=== PATIENT | female | born 1940 | race Caucasian/White ===

== ENCOUNTER 2019-02-13 10:35 | Inpatient (IN) | payer MEDICARE ==
[~2019-02-13] VITALS: Ht 162.6 cm; Wt 83.9 kg
--- OUTSIDE RECORDS SUMMARY | 2019-02-13 10:37 | XMS REPORT | Clinical Summary ---
Author Author [facility] Address Unknown Phone Unavailable Care Team Providers Care Editor Farm Journal Name Role Phone Jamila Potts MD PCP Allergies Comments Active Allergy Reactions Severity Noted Date Converted from [facility]; Moxifloxacin 05/24/2016 Converted from [facility]; Ceftriaxone 05/24/2016 Converted from [facility]; Fluconazole 05/24/2016 Rash Iodine And Iodide 05/24/2016 Containing Products Penicillins Hives 05/24/2016 Converted from [facility]; Sulfa (Sulfonamide 05/24/2016 Antibiotics) Medications End Date Status Medication Sig Dispensed Refills Start Date Active acetaminophen (TYLENOL) Take 650 mg 0 325 MG tablet by mouth every 6 (six) hours as needed for mild pain. Active diphenhydrAMINE Take 25 mg by 0 (BENADRYL) 25 mg tablet mouth every 6 (six) hours. Active famotidine (PEPCID) 20 MG Take 20 mg by 0 tablet mouth nightly. Active loratadine (CLARITIN) 10 Take 10 mg by 0 mg tablet mouth daily. Active metFORMIN (GLUCOPHAGE) Take 500 mg 0 500 MG tablet by mouth daily. Active insulin GLARGINE (LANTUS) Inject 50 0 100 unit/mL injection Units under the skin daily. Active aspirin (ECOTRIN) 81 MG Take 81 mg by 0 enteric coated tablet mouth nightly. Active VITAMIN B COMPLEX (B Take 1 tablet 0 COMPLEX ORAL) by mouth daily. Active ASCORBATE CALCIUM Take 1 tablet 0 (VITAMIN C ORAL) by mouth daily. Active CHOLECALCIFEROL, VITAMIN Take 1 tablet 0 D3, (VITAMIN D3 ORAL) by mouth daily. Active FOLIC ACID/MV,FE,MIN Take 1 tablet 0 (CENTRUM ORAL) by mouth daily. Active ONETOUCH ULTRA TEST strip U QID UTD 1 test strips 7 Active ondansetron (ZOFRAN) 4 MG Take 1 tablet 20 tablet 0 tablet (4 mg total) 9 by mouth every 8 (eight) hours as needed for nausea or vomiting. 05/20/2018 Discontinued insulin lispro (HumaLOG) Inject 10-13 0 100 unit/mL injection Units under the skin 3 (three) times a day before meals. Per sliding scale Active Problems Problem Noted Date Bilateral carpal tunnel syndrome 05/20/2018 Ganglion of left wrist 05/20/2018 Arthritis of right hand 05/20/2018 TIA (transient ischemic attack) 05/24/2016 Confusion 05/24/2016 Polyp of colon 09/28/2015 Overview: Overview: 09/2015 tubular adenoma x 2 But 16 cm above anal verge 2 tubulovillous adenomas not completely removed with dysplasia one is 24 and [address] Ubaldo Torres Hay fever 08/20/2011 Overview: Overview: Converted from EC Benign essential hypertension 08/20/2011 Overview: Overview: Converted from ECW Type 2 diabetes mellitus 08/20/2011 Overview: Overview: Converted from ECW Pure hypercholesterolemia 11/09/2010 Overview: Overview: Converted from ECW Chronic migraine without aura 04/15/2010 Overview: Overview: Converted from ECW Encounters Care Team Description Date Type Specialty Maia Spence RN 02/12/2019 Telephone Access Maia Spence RN 02/12/2019 Nurse Triage Access Jamila Potts MD 02/12/2019 Telephone Internal Medicine Alex Noriega MD Bilateral carpal tunnel syndrome (Primary Dx); Ganglion of left wrist; Arthritis of right hand 05/20/2018 Office Visit Orthopedic Surgery Jamila Potts MD 04/02/2018 Telephone Internal Medicine after 02/12/2018 Family History Medical History Relation Name Comments Colon cancer Mother Relation Name Status Comments Mother Social History Date Tobacco Use Types Packs/Day Years Used Never Smoker Alcohol Use Drinks/Week oz/Week Comments No Sex Assigned at Date Recorded Not on file Industry Job Start Date Occupation Not on file Not on file Not on file Travel End Travel History Travel Start No recent travel history available. Last Filed Vital Signs Not on file Plan of Treatment Health Maintenance Due Date Last Done Comments DIABETIC RETINAL EYE EXAM 1940 DIABETIC FOOT EXAM 1952 URINE MICROALBUMIN 1952 COLONOSCOPY SCREENING 1992 SHINGLES VACCINES (#1) 1992 65+ PNEUMOCOCCAL VACCINE 2007 (1 of 2 - PCV13) INFLUENZA VACCINE 03/18/2019 Procedures Comments Procedure Name Priority Date/Time Associated Diagnosis XR HANDS 3 VW BILATERAL Routine 05/20/2018 Bilateral carpal tunnel 1:55 PM CDT syndrome after 02/12/2018 Results * XR Hands 3 Vw Bilateral (05/20/2018 1:55 PM CDT) Specimen Narrative Performed At [facility], lateral, oblique x-rays are done of the left hand and wrist.These x-rays demonstrate 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 Performing Organization Address City/State/Zipcode Phone Number [facility] [address] [place] [address] after 02/12/2018 Insurance Type Payer Benefit Subscriber ID Effective Phone Address Plan / Dates Group Medicare MEDICARE MEDICARE xxxxxxxxxx 2007-P SER[place], PART A AND resent [place] B Commercial AAR AAR xxxxxxxxxxx 2007-P SUPPLEMENT resent Advance Directives Patient has advance care planning documents on file. For more information, deya holloway contact: Sergio Mayfield [address] [place] [address]
[2019-02-13] MEDS ORDERED: SODIUM CHLORIDE 0.9% 1000ML 1,000 ML IV STA (11:18)
[2019-02-13] MEDS ORDERED: FAMOTIDINE 20 MG/2 ML VIAL IV STA (11:41)
[2019-02-13] MEDS ORDERED: SODIUM CHLORIDE 0.9% 1000ML 1,000 ML ONE (11:50)
--- NOTE | 2019-02-13 12:38 | Diagnostic Imaging Report ---
EXAMINATION: CXR 2 VIEW - HOPD INDICATION: Abdominal pain, vomiting. COMPARISON: None FINDINGS: TUBES and LINES: None. LUNGS: Lungs are well inflated. There is no evidence of pneumonia or pulmonary edema. PLEURA: No pleural effusion or pneumothorax. HEART AND MEDIASTINUM: The cardiomediastinal silhouette is unremarkable. BONES AND SOFT TISSUES: No acute osseous abnormality. UPPER ABDOMEN: No free air under the diaphragm. IMPRESSION: No acute radiographic abnormality. Signed by: Dr. Ibis Ghosh MD on 02/13/2019 12:35 PM
--- NOTE | 2019-02-13 12:56 | Diagnostic Imaging Report ---
EXAM: CT Abdomen and Pelvis without contrast INDICATION: Abdominal Pain, vomiting. COMPARISON: None. TECHNIQUE: Abdomen and pelvis were scanned utilizing a multidetector helical scanner from the lung base to the pubic symphysis without administration of IV contrast. Lack of IV contrast limits evaluation of visceral and vascular structures. Oral Gastrografin contrast was administered. Coronal and sagittal reformations were obtained. COMPLICATIONS: None RADIATION DOSE: Total DLP: 762.9 mGy*cm CTDIvol has been reviewed. It is below the limits set by the Radiation Protocol Committee (RPC). FINDINGS: LINES and TUBES: None. LOWER THORAX: Coronary atherosclerosis. HEPATOBILIARY: No evidence of focal lesion. No biliary ductal dilation. GALLBLADDER: Cholelithiasis without CT evidence of cholecystitis. SPLEEN: No splenomegaly. Calcified splenic granulomas. PANCREAS: No evidence of focal masses or ductal dilatation. There is peripancreatic stranding and trace amount of free fluid, for example as seen on series 2, image 32. However, there is no significant enlargement of the pancreas on this noncontrast study. ADRENALS: No adrenal nodules KIDNEYS/URETERS: No evidence of hydronephrosis, solid mass, or stone. GI TRACT: There is sigmoid colonic diverticulosis without CT evidence of diverticulitis. No evidence of wall thickening or distension. Appendix is normal. PELVIC ORGANS/BLADDER: Unremarkable. LYMPH NODES: No lymphadenopathy. VESSELS: There are scattered atherosclerotic calcifications in the aorta and branch vessels. PERITONEUM / RETROPERITONEUM: No free air. Trace perihepatic and pelvic ascites. BONES AND SOFT TISSUES: Unremarkable. CONCLUSION: Peripancreatic stranding without significant pancreatic enlargement. Findings may represent early acute pancreatitis. No evidence of drainable collection. Suggest correlation with laboratory and clinical findings. Signed by: Dr. Ibis Ghosh MD on 02/13/2019 12:53 PM
--- OUTSIDE RECORDS SUMMARY | 2019-02-13 13:11 | XMS REPORT | Clinical Summary ---
Author Author [facility] Address Unknown Phone Unavailable Care Team Providers Care Policy Change Clerks Supervisor Name Role Phone Jamila Potts MD PCP [...] Performing Organization Address City/State/Zipcode Phone Number [facility] [address] [place] [address] after 02/12/2018 Insurance Type Payer Benefit Subscriber ID Effective Phone Address Plan / Dates Group Medicare MEDICARE MEDICARE xxxxxxxxxx 2007-P [place], PART A AND resent [place] B Commercial AAR AAR xxxxxxxxxxx 2007-P SUPPLEMENT resent Advance Directives Patient has advance care planning documents on file. For more information, deya holloway contact: Sergio Mayfield [address] [place] [address]
--- OUTSIDE RECORDS SUMMARY | 2019-02-13 13:11 | XMS REPORT ---
Author Author [facility] Address Unknown Phone Unavailable Care Team Providers Care Calliope Player Name Role Phone Natalie RAMACHANDRAN Unavailable Unavailable Problems This patient has no known problems. Allergies, Adverse Reactions, Alerts This patient has no known allergies or adverse reactions. Medications This patient has no known medications. Results Test Description Test Time Test Comments Text Results Atomic Results Result Comments CT ABD/PEL WO CONTRAST-HOPD 2019-02-13 12:43:[address] [address] Patient Name: ADORE LEDESMA MR #: [id number] : 1940 Age/Sex: 78/F Req #: [id number] Adm Physician: Ordered by: MATTHIAS RAMACHANDRAN MD Report #: [id number] Location: [facility] Room/Bed: Procedure: [id number] HOPD/CT ABD/PEL WO CONTRAST-HOPD Exam Date: 02/13/19 Exam Time: 1244 REPORT STATUS: Signed EXAM: CT Abdomen and Pelvis without contrast INDICATION: Abdominal Pain, vomiting. COMPARISON: None. TECHNIQUE: Abdomen and pelvis were scanned utilizing a multidetector helical scanner from the lung base to the pubic symphysis without administration of IV contrast. Lack of IV contrast limits evaluation of visceral and vascular structures. Oral Gastrografin contrast was administered. Coronal and sagittal reformations were obtained. COMPLICATIONS: None RADIATION DOSE: Total DLP: 762.9 mGy*cm CTDIvol has been reviewed. It is below the limits set by the Radiation Protocol Committee (RPC). FINDINGS: LINES and TUBES: None. LOWER THORAX: Coronary atherosclerosis. HEPATOBILIARY: No evidence of focal lesion. No biliary ductal dilation. GALLBLADDER: Cholelithiasis without CT evidence of cholecystitis. SPLEEN: No splenomegaly. Calcified splenic granulomas. PANCREAS: No evidence of focal masses or ductal dilatation. There is peripancreatic stranding and trace amount of free fluid, for example as seen on series 2, image 32. However, there is no significant enlargement of the pancreas on this noncontrast study. ADRENALS: No adrenal nodules KIDNEYS/URETERS: No evidence of hydronephrosis, solid mass, or stone. GI TRACT: There is sigmoid colonic diverticulosis without CT evidence of diverticulitis. No evidence of wall thickening or distension. Appendix is normal. PELVIC ORGANS/BLADDER: Unremarkable. LYMPH NODES: No lymphadenopathy. VESSELS: There are scattered atherosclerotic calcifications in the aorta and branch vessels. PERITONEUM / RETROPERITONEUM: No free air. Trace perihepatic and pelvic ascites. BONES AND SOFT TISSUES: Unremarkable. CONCLUSION: Peripancreatic stranding without significant pancreatic enlargement. Findings may represent early acute pancreatitis. No evidence of drainable collection. Suggest correlation with laboratory and clinical findings. Signed by: Dr. Dianne Frederick MD on 02/13/2019 12:53 PM Dictated By: DIANNE FREDERICK MD [id number] Transcribed By: BRENNA on 02/13/19 1253 COPY TO: MATTHIAS RAMACHANDRAN MD CXR 2 VIEW - [facility] 2019-02-13 12:31:00 [place] [address] Patient Name: ADORE LEDESMA MR #: [id number] : 1940 Age/Sex: 78/F Req #: [id number] Adm Physician: Ordered by: MATTHIAS RAMACHANDRAN MD Report #: [id number] Location: [facility] Room/Bed: Procedure: [id number] HOPD/CXR 2 VIEW - HOPD Exam Date: 02/13/19 Exam Time: 1231 REPORT STATUS: Signed EXAMINATION: CXR 2 VIEW - HOPD INDICATION: Abdominal pain, vomiting. COMPARISON: None FINDINGS: TUBES and LINES: None. LUNGS: Lungs are well inflated. There is no evidence of pneumonia or pulmonary edema. PLEURA: No pleural effusion or pneumothorax. HEART AND MEDIASTINUM: The cardiomediastinal silhouette is unremarkable. BONES AND SOFT TISSUES: No acute osseous abnormality. UPPER ABDOMEN: No free air under the diaphragm. IMPRESSION: No acute radiographic abnormality. Signed by: Dr. Dianne Frederick MD on 02/13/2019 12:35 PM Dictated By: DIANNE FREDERICK MD 1235 Transcribed By: BRENNA on 02/13/19 1235 COPY TO: MATTHIAS RAMACHANDRAN MD
[2019-02-13] MEDS ORDERED: DEXTROSE 50% SYRINGE 50 ML IV PRN (14:15)
--- NOTE | 2019-02-13 14:20 | NUR ---
received pt via stretcher EMS from free standing ER. patient AAOx4, resp even and unlabored. oriented to room and use of call light. call light placed within reach.
[2019-02-13 15:09] VITALS: BP 147/65
[2019-02-13 15:12] VITALS: BP 147/65
[2019-02-13] MEDS ORDERED: METFORMIN HCL500 M1 PO (15:39)
[2019-02-13] MEDS: SODIUM CHLORIDE 0.9% 1000ML 1,000 ML IV SCH ×2 (15:42→20:18)
[2019-02-13 16:00] VITALS: BP 147/65
--- NOTE | 2019-02-13 16:21 | NUR ---
SPOKE WITH DR MADHURI HAHN SON'S ([facility]) AND RECEIVED ORDER FOR HIDA SCAN. CALLING PRIMARY NURSE TO UPDATE.
[2019-02-13] MEDS: INSULIN REGULAR, HUMAN 100 UNIT/1 ML 3ML VIAL SQ SCH ×2 (16:30→20:18)
[2019-02-13] MEDS ORDERED: INSULIN LISPRO 100 UNIT/1 ML 3ML VIAL SQ SCH (16:30)
[2019-02-13] MEDS ORDERED: MORPHINE SULFATE 2 MG/ML SYR 1ML IV PRN (16:45)
[2019-02-13] MEDS ORDERED: MORPHINE SULFATE INJ 4 MG/ML INJ 1ML IV PRN (17:00)
[2019-02-13] MEDS: METRONIDAZOLE 500MG/NS 100ML 100 ML IV SCH (17:07)
[2019-02-13] MEDS: LEVOFLOXACIN 500MG/D5W 100ML 100 ML IV SCH (17:07)
[2019-02-13] MEDS ORDERED: CEFTRIAXONE SOD 1 GM/NS 50 ML 50 ML IV STA (17:22)
[2019-02-13] MEDS ORDERED: CEFEPIME 1GM/NS 0.9% 50 ML 50 ML IV SCH (17:45)
[2019-02-13 19:24] VITALS: BP 147/65
[2019-02-13] MEDS: ACETAMINOPHEN 325 MG TAB PO PRN (23:59)
[2019-02-14] VITALS (8 sets, daily range): BP systolic 124–150; BP diastolic 57–67
[2019-02-14] MEDS: METRONIDAZOLE 500MG/NS 100ML 100 ML IV SCH ×3 (01:05→17:29)
--- NOTE | 2019-02-14 01:53 | Diagnostic Imaging Report ---
Exam:Hepatobiliary imaging History:Pain Hepatobiliary Scan with Gallbladder Ejection Fraction Clinical information: 78 F with acute pancreatitis Technique: Following intravenous administration of 6.8 millicuries of Tc-99m mebrofenin, dynamic images of the abdomen in the anterior projection were obtained through 35 minutes. Sincalide (CCK analog) 1.8 micrograms was administered intravenously over 30 minutes with additional imaging for determination of gallbladder ejection fraction. Discussion: Perfusion of the liver is normal. Extraction of tracer by the liver parenchyma is normal. Tracer appears promptly within the biliary tract. The gallbladder begins to fill by 16 minutes post injection of tracer and fills adequately. Tracer is seen in the small bowel by 24 minutes. The gallbladder ejection fraction with sincalide is 26% (normal greater than 40%). Impression: 1. Filling of the gallbladder excludes acute cystic duct obstruction/acute cholecystitis. 2. The decreased gallbladder ejection fraction of 26% supports the clinical diagnosis of chronic cholecystitis/gallbladder dyskinesia. 3. Preliminary report was provided by Wesley Hall MD. See prelim report below. PRELIMINARY REPORT Comparison: None available Findings:See impression Impression: Filling of the gallbladder. No acute cholecystitis. Signed by: Dr. Sahara Cavazos M.D. on 02/14/2019 1:45 PM
[2019-02-14 05:01] LABS: BASOPHILS % 0.4 % (0.0-1.0); EOSINOPHILS % 0.1 % (0.0-6.0); HEMATOCRIT 33.3 % (34.2-44.1); HEMOGLOBIN 11.4 g/dL (12.0-16.0); LYMPHOCYTES # (AUTO) 1.3 (1.0-3.2); LYMPHOCYTES % 12.1 % (18.0-39.1); MEAN CORPUSCULAR HEMOGLOBIN 31.8 pg (28-32); MEAN CORPUSCULAR HGB CONC 34.2 g/dL (31-35); MEAN CORPUSCULAR VOLUME 92.8 fL (81-99); MONOCYTES # (AUTO) 0.8 (0.2-0.8); MONOCYTES % 7.6 % (4.4-11.3); NEUTROPHILS # (AUTO) 8.2 (2.1-6.9); NEUTROPHILS % 78.9 % (38.7-80.0); PLATELET COUNT 176 x10e3/uL (140-360); RED BLOOD COUNT 3.59 x10e6/uL (3.6-5.1)
[2019-02-14 05:21] LABS: ALANINE AMINOTRANSFERASE 90 IU/L (0-55); ALBUMIN/GLOBULIN RATIO 1.1 (0.8-2.0); ALKALINE PHOSPHATASE 55 IU/L (40-150); ANION GAP 11.1 mmol/L (8-16); BLOOD UREA NITROGEN 12 mg/dL (7-26); BUN/CREATININE RATIO 14 (6-25); CALCIUM 8.6 mg/dL (8.4-10.2); CARBON DIOXIDE 26 mmol/L (22-29); CHLORIDE 105 mmol/L (98-107); CREATININE, SERUM 0.85 mg/dL (0.57-1.11); EST GLOMERULAR FILTRATION RATE > 60 ML/MIN (60-); GLUCOSE 171 mg/dL (74-118); POTASSIUM 4.1 mmol/L (3.5-5.1); SODIUM 138 mmol/L (136-145)
[2019-02-14] MEDS: INSULIN REGULAR, HUMAN 100 UNIT/1 ML 3ML VIAL SQ SCH ×4 (07:30→19:30)
[2019-02-14] MEDS: SODIUM CHLORIDE 0.9% 1000ML 1,000 ML IV SCH ×2 (07:56→21:41)
[2019-02-14 08:37] LABS: CHOL/HDL RATIO 4.2 (3.0-3.6)
[2019-02-14] MEDS: ACETAMINOPHEN 325 MG TAB PO PRN ×3 (09:30→22:03)
--- NOTE | 2019-02-14 10:59 | NUR ---
Met with pt nurse and discussed pt status and plans. Pt is admitted w/ acute pancreatitis, and does meet inpatient status. She is in observation. She is anxious and wants to go home to her who has dementia and recent orthopedic surgery. MRCP is now in progress, and she may possibly discharge pending results.
--- NOTE | 2019-02-14 11:07 | History and Physical ---
CHIEF COMPLAINT: This 78-year-old female comes in with abdominal pain. HISTORY OF PRESENTING ILLNESS: Ms. Amaya Mclean, a 78-year-old female comes in with 2 days of diffuse abdominal pain, constantly more to the epigastric area. The patient came into the emergency room, was found to have an elevated lipase, was admitted for acute pancreatitis. PAST MEDICAL HISTORY: History of diabetes. PAST SURGICAL HISTORY: None. SOCIAL HISTORY: No EtOH. No IV drug abuse. No history of smoking either. FAMILY HISTORY: The patient lives with her of 54 years of marriage. 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 PAST SURGICAL HISTORY: Noncontributory. REVIEW OF SYSTEMS: Negative for chest pain. Positive for nausea and vomiting. No diarrhea. No constipation. No rectal bleeding. No hematochezia. No hematemesis. No icterus. No pallor. No diplopia. No blurry vision. No headaches. ALLERGIES: THE PATIENT IS ALLERGIC TO: 1. PENICILLIN. 2. SULFA. 3. CEFTRIAXONE. 4. IODINE. 5. ZOFRAN. PHYSICAL EXAMINATION: GENERAL: The patient is alert and oriented x3. Very apprehensive, anxious appearing. VITAL SIGNS: Temperature is 98.7, T-max of 99.5, pulse of 101, blood pressure is 150/67, and pulse oximetry of 100%. HEENT: Normocephalic and atraumatic. No icterus present. CVS: S1, S2 normal. Regular rate and rhythm. ABDOMEN: Tender in the epigastric area. No rebound or guarding. EXTREMITIES: No clubbing, no cyanosis, no edema. LABORATORY DATA: White count is 10.43, hemoglobin 11.4, and hematocrit of 33.3. Chemistry shows sodium of 138, potassium of 4.1, BUN of 14, and creatinine of 0.85. Glucose is 171. AST and ALT slightly elevated. Alkaline phos was normal. Lipase trending down from 650 to 95. IMAGING STUDIES: CT shows peripancreatic stranding without significant pancreatic enlargement, no evidence of drainable collection. The patient's gallbladder cholelithiasis without CT evidence of cholecystitis. HIDA scan was done, which showed EF of 25% preliminary. Chest x-ray was normal. ASSESSMENT AND PLAN: Acute pancreatitis, etiology is unknown. We will go ahead and check lipid levels on the patient. Continue monitoring her lipase. Fluids have been reinstituted. The patient is on Flagyl, Cipro, and Levaquin prophylactically. The patient is scheduled for an MRCP today. Further recommendation per clinical course. Dr. Garcia is on the case. For diabetes, we will go ahead and start on insulin sliding scale. MD ELISHA Gonzáles/MODL /[id number]
--- NOTE | 2019-02-14 12:28 | NUR ---
per in radiology, preliminary MRCP results show no acute findings. MD states final results will be posted in the morning.
[2019-02-14] MEDS: LEVOFLOXACIN 500MG/D5W 100ML 100 ML IV SCH (17:02)
--- NOTE | 2019-02-14 18:44 | History and Physical ---
This is a 78-year-old female, who comes in with abdominal pain, was found to have pancreatitis, admitted for the same. HISTORY OF PRESENTING ILLNESS: Ms. Amaya Mclean is a 78-year-old female, the patient came in with abdominal pain, worse for the last 2 days of duration, diffuse, more epigastric in nature and came to the emergency room, was found to have elevated lipase, admitted for pancreatitis. REVIEW OF SYSTEMS: Negative for chest pain. No shortness of breath. Positive for nausea and vomiting. No chills. No fever. Denies any diarrhea or constipation. PAST SURGICAL HISTORY: Noncontributory. SOCIAL HISTORY: No EtOH, no tobacco. PAST MEDICAL HISTORY: Positive for diabetes. DICTATION ENDS HERE MD ELISHA Gonzáles/MODL /[id number]
--- NOTE | 2019-02-14 19:16 | NUR ---
Bedside report walking rounds complete. Pt resting in bed and in no apparent distress. All safety measures ensured, bed alarm on, and pt call parra near.
--- NOTE | 2019-02-14 21:05 | Diagnostic Imaging Report ---
EXAM: Magnetic Resonance Cholangiopancreatography (M.R.C.P.) INDICATION: ^RULE OUT COMMON BILE DUCT STONE/CHOLEDOCHOLITHAISIS COMPARISON: HIDA scan 02/13/2019. CT abdomen and pelvis 02/13/2019. TECHNIQUE: Multiplanar, multisequence MRCP was performed, with sequences including coronal turbo spin-echo T1-weighted scans, [facility] MRCP scans, coronal spin, coronal MPR 2, SMRCP 3D HR, [facility] MRCP ANTHONY. Thin and thick slab MRCP sequences with subsequent reconstruction images into rotational MIP reconstructions by the technologist and supervising reviewed by the radiologist at the scanner workstation. IV Contrast: None Oral Contrast: None Medications: None COMPLICATIONS: None FINDINGS: LOWER THORAX: Unremarkable. HEPATOBILIARY: No focal hepatic lesions. No biliary ductal dilation. Common bile duct measures 0.5 cm with no filling defects. Gradual tapering. No bronchial cutoff. GALLBLADDER: No radio-opaque stones or sludge. No wall thickening. Gallbladder measures 7.6 x 3.6 cm. SPLEEN: No splenomegaly. PANCREAS: No focal masses or ductal dilatation. Pancreas is edematous with peripancreatic fluid. No drainable fluid collections. ADRENALS: No adrenal nodules KIDNEYS/URETERS: No hydronephrosis. No cystic or solid mass lesions. No stones. GI TRACT: No abnormal distention, wall thickening, or evidence of bowel obstruction. LYMPH NODES: No lymphadenopathy. VESSELS: Unremarkable. PERITONEUM / RETROPERITONEUM: Nondrainable peripancreatic fluid. There is mild mesenteric edema related to the peripancreatic fluid. Trace free fluid around the liver and bilateral paracolic gutters. BONES: Unremarkable. SOFT TISSUES: Unremarkable. IMPRESSION: 1. Preliminary report by Dr. Melvin Hall MD. No new emergent finding. See the final report by abdominal radiologist. 2. Acute interstitial pancreatitis. 3. Mild peripancreatic fluid. Nondrainable. 4. Normal common bile duct. No intraductal filling defect or obstructing lesion. Signed by: Dr. Jesus Malhotra M.D. on 02/15/2019 8:48 AM
[2019-02-15] VITALS (8 sets, daily range): BP systolic 107–166; BP diastolic 60–84
[2019-02-15] MEDS: METRONIDAZOLE 500MG/NS 100ML 100 ML IV SCH ×3 (01:29→18:50)
[2019-02-15] MEDS: ACETAMINOPHEN 325 MG TAB PO PRN ×4 (04:01→22:50)
[2019-02-15] MEDS: SODIUM CHLORIDE 0.9% 1000ML 1,000 ML IV SCH ×3 (05:45→22:49)
[2019-02-15 05:51] LABS: ALANINE AMINOTRANSFERASE 56 IU/L (0-55); ALBUMIN 2.6 g/dL (3.5-5.0); ALBUMIN/GLOBULIN RATIO 0.9 (0.8-2.0); ALKALINE PHOSPHATASE 50 IU/L (40-150); ANION GAP 12.6 mmol/L (8-16); BLOOD UREA NITROGEN 11 mg/dL (7-26); BUN/CREATININE RATIO 16 (6-25); CALCIUM 8.3 mg/dL (8.4-10.2); CARBON DIOXIDE 21 mmol/L (22-29); CHLORIDE 105 mmol/L (98-107); EST GLOMERULAR FILTRATION RATE > 60 ML/MIN (60-); GLUCOSE 175 mg/dL (74-118); POTASSIUM 3.6 mmol/L (3.5-5.1); SODIUM 135 mmol/L (136-145)
[2019-02-15 06:30] LABS: FOLATE 13.2 ng/mL (7.0-15.4)
[2019-02-15 07:06] LABS: FERRITIN 180.37 ng/mL (4.63-204.00)
--- NOTE | 2019-02-15 07:09 | NUR ---
Beside report, walking rounds complete with day shift RN.
--- NOTE | 2019-02-15 07:16 | History and Physical ---
HISTORY OF PRESENT ILLNESS: The patient states she still has some abdominal pain, but overall it is much better than when she presented. I reviewed the studies with the patient. CT scan shows some pancreatitis. The MRCP did not show any gallstones and HIDA scan showed an EF of about 26%. She has no other complaints this morning on review of systems. PHYSICAL EXAMINATION: VITAL SIGNS: Stable. She is afebrile. GENERAL: In no apparent distress, lying in bed. CARDIOVASCULAR: Regular rate and rhythm. LUNGS: Clear to auscultation bilaterally. ABDOMEN: Good bowel sounds. Soft. Mildly tender in the midepigastric area, but no peritoneal signs and nondistended. EXTREMITIES: No clubbing or cyanosis. NEUROLOGICAL: Nonfocal. ASSESSMENT/PLAN: 1. Pancreatitis. Continue with current care since she is doing much better. 2. Elevated liver function tests. Continue to monitor. 3. Chronic cholecystitis. We will consult Dr. Watkins. 4. Diabetes. Continue to monitor. 5. Hypertension. We will continue to monitor. Please see hospital chart for full details. MD URBANO Lynn/TRES /[id number]
[2019-02-15] MEDS: INSULIN REGULAR, HUMAN 100 UNIT/1 ML 3ML VIAL SQ SCH ×4 (07:30→20:25)
--- NOTE | 2019-02-15 15:25 | NUR ---
AVTAR LM WITH DR. ARTIS REGARDING PATIENT PLAN OF CARE. PATIENT DOES NOT MEET INPT CRITERIA AND RECEIVING OUTPATIENT SERVICES. CM LM TO DISCHARGE AND FOLLOW UP WITH OUTPATIENT WORK UP. PENDING RETURN CALL FOR ORDERS. GI CONSULTED FOR SEVERE ABD PAIN. PENDING GI RECOMMENDATIONS FOR DISCHARGE.
--- NOTE | 2019-02-15 16:24 | Consultation ---
DATE OF CONSULTATION: 02/15/2019 HISTORY OF PRESENT ILLNESS: The patient is a 78-year-old female, who presents with complaints of epigastric abdominal pain. She says the pain started several days ago, was severe. She has not had similar pains in the past. She says the pain is less now. She had evaluation with imaging studies, which revealed gallstones seen on CT scan of the abdomen and pelvis. MRCP did not reveal any common bile duct stones. HIDA scan had a low ejection fraction, but the gallbladder did fill cystic duct, was not obstructive. The patient is tolerating a clear liquid diet now. There are no symptoms of jaundice. PAST MEDICAL HISTORY: Significant for diabetes. She has not had previous abdominal surgery. ALLERGIES: SHE HAS ALLERGY TO PENICILLIN, SULFA, ROCEPHIN, IODINE, AND ZOFRAN. FAMILY HISTORY: Noncontributory. SOCIAL HISTORY: The patient does not smoke cigarettes or drink alcohol. REVIEW OF SYSTEMS: As stated above, otherwise was negative. She has had no fever, no weight loss. PHYSICAL EXAMINATION: GENERAL: The patient is awake and alert. VITAL SIGNS: Normal. HEENT: Unremarkable. Sclerae are not icteric. NECK: Supple. No masses. LUNGS: Equal breath sounds, are clear bilaterally. CARDIAC: Regular rate and rhythm with no murmur. ABDOMEN: Tender in the epigastrium, greatest in the right upper quadrant. There is no mass. There is no organomegaly. EXTREMITIES: Have no edema. NEUROLOGIC: Grossly intact. LABORATORY DATA: White blood cell count is 10.4, hemoglobin 11, hematocrit 33, platelet count is normal. Chemistries most recently revealed normal lipase. Essentially normal liver function tests. Electrolytes are normal. ASSESSMENT: A 78-year-old female with most likely gallstone pancreatitis and gallstones seen on CT scan of the abdomen. Her pancreatitis seems to be resolved. I think she will benefit from cholecystectomy. PLAN: Plan is scheduled for tomorrow if the patient wishes to proceed with surgery. The proposed surgery was explained to the patient including risks, benefits, and alternatives, she understands. She has had the opportunity to ask questions. Thank you for asking me to see Ms. Mclean. MD VAIBHAV Rice/TRES /[id number]
[2019-02-15] MEDS: LEVOFLOXACIN 500MG/D5W 100ML 100 ML IV SCH (16:38)
--- NOTE | 2019-02-15 16:39 | NUR ---
Patient does not want to sign consent for surgery at this time until her son, Kane, speaks with Dr. Carlos. Then she will make a decision.
--- NOTE | 2019-02-15 18:24 | NUR ---
Patient said her son was able to talk to Dr. Carlos , consent signed by patient for cathy moss tomorrow.
--- NOTE | 2019-02-15 22:53 | NUR ---
placed a call to Dr. Regan answering service per spoke to Isabel for allergy medications
--- NOTE | 2019-02-15 23:02 | NUR ---
Orders received Singulair 10 mg PO
[2019-02-15] MEDS: MONTELUKAST SODIUM 10 MG TAB PO ONE ×2 (23:21→23:24)
--- NOTE | 2019-02-15 23:24 | NUR ---
went to patients room to give singular in which Dr. Regan ordered for patients request for allergies. I informed the patient of the medication. The patient decided after I went to give the medication to her that she will pass on taking it as it will dry her up to much. Patient refused the medication
[2019-02-15] MEDS ORDERED: CYANOCOBALAMIN INJ 1,000 MCG/ML VIAL IM ONE (23:30)
[2019-02-16] VITALS (7 sets, daily range): BP systolic 115–150; BP diastolic 57–65
[2019-02-16] MEDS: METRONIDAZOLE 500MG/NS 100ML 100 ML IV SCH ×3 (02:09→18:00)
--- NOTE | 2019-02-16 06:15 | NUR ---
placed a call to pharmacy for the IV Iron, pharmacist is working on making the iron to send to the unit.
[2019-02-16] MEDS: IRON SUCROSE 100 MG in SODIUM CHLORIDE 0.9% 100 ML 100 ML IV SCH ×2 (06:50→06:51)
[2019-02-16] MEDS: INSULIN REGULAR, HUMAN 100 UNIT/1 ML 3ML VIAL SQ SCH ×4 (07:30→21:15)
[2019-02-16] MEDS ORDERED: MONTELUKAST SODIUM 10 MG TAB PO SCH (09:00)
[2019-02-16] MEDS ORDERED: CYANOCOBALAMIN INJ 1,000 MCG/ML VIAL IM SCH (09:00)
[2019-02-16] MEDS ORDERED: BUPIVACAINE HCL 0.5% INJ 30 ML VIAL INJ ONE (11:30)
[2019-02-16] MEDS: SODIUM CHLORIDE 0.9% 1000ML 1,000 ML IV SCH ×2 (11:58→22:21)
[2019-02-16] MEDS ORDERED: HYDROCODONE/APAP 5MG-325MG TAB PO PRN (12:00)
[2019-02-16] MEDS ORDERED: MORPHINE SULFATE INJ 4 MG/ML INJ 1ML IV PRN (12:00)
[2019-02-16] MEDS ORDERED: PROMETHAZINE 12.5MG/ NACL 0.9% 12.5 MG/50 ML BAG IV PRN (12:00)
--- NOTE | 2019-02-16 12:24 | Operative Report ---
DATE OF PROCEDURE: 02/16/2019 SURGEON: Fabián Carlos MD PREOPERATIVE DIAGNOSES: Acute pancreatitis, cholelithiasis. POSTOPERATIVE DIAGNOSES: Acute pancreatitis, cholelithiasis. PROCEDURE: Diagnostic laparoscopy, laparoscopic cholecystectomy. SOLAR LAB TECHNICIAN: None. ANESTHESIA: General. INDICATIONS AND FINDINGS: The patient is a 78-year-old female, admitted to the hospital with complaints of severe epigastric abdominal pain. Workup revealed pancreatitis as well as multiple gallstones. At surgery, the gallbladder was distended, edematous, contained multiple small stones. Cystic duct was about 3 mm in diameter. Common bile duct was about 6 mm in diameter. Liver, stomach, and lower abdomen all appeared normal. TECHNIQUE: After adequate general endotracheal anesthesia with the patient in supine position, the abdomen was prepped and draped in sterile fashion with ChloraPrep solution. Skin in the umbilicus was infiltrated with 0.5% Marcaine. Incision was made in the umbilicus, abdominal wall was elevated, Veress needle was introduced, pneumoperitoneum was then created. A 10 mm trocar and cannula was then passed through the umbilical wound. Laparoscopic camera was introduced. Initial laparoscopy revealed the gallbladder to be distended and edematous. Liver, stomach, and lower abdomen all appeared normal. A 10 mm trocar and cannula was placed in the epigastrium and two 5 mm trocars and cannulas were placed in the right upper quadrant, these were placed under direct vision. Fundus of the gallbladder was grasped, retracted superiorly. Neck of the gallbladder was grasped, retracted laterally. Peritoneum over the neck of the gallbladder was incised. The gallbladder cystic duct junction was dissected free. Cystic artery was also dissected free. The neck of the gallbladder completely dissected free. The cystic artery was divided between hemoclips close to the gallbladder. Cystic duct was also divided between hemoclips with three clips being left on the common bile duct side. The gallbladder was dissected free from the liver using scissors and electrocautery. Once it was entirely free, it was placed into an Endopouch and brought out through the epigastric cannula, contained multiple small stones. Gallbladder bed was inspected for hemostasis, which was seen to be adequate. It was irrigated with saline, all fluid aspirated, inspected once again for hemostasis which was seen to be adequate. Instruments and cannulas were removed, pneumoperitoneum was evacuated. Wounds were then closed. Fascia in the umbilical and epigastric wound closed with 0 Vicryl. Skin to all wounds closed with diamond. Sterile dressings applied to each wound. The patient tolerated the procedure well, estimated blood loss was 10 mL, there were no complications, all counts were correct and the patient was taken to the recovery room in satisfactory condition. MD NANCY RiceG/MODL /[id number] cc: MD Edgard Lynn MD
[2019-02-16] MEDS: ACETAMINOPHEN 325 MG TAB PO PRN ×2 (13:50→22:38)
[2019-02-16] MEDS ORDERED: ROCURONIUM BROMIDE 10 MG/ML 5ML VIAL ONE (14:17)
[2019-02-16] MEDS ORDERED: SEVOFLURANE INHAL SOLN 250 ML PEN BTL ONE (14:17)
[2019-02-16] MEDS ORDERED: LIDOCAINE HCL 2% LOCAL INJ 5 ML SDV VIAL INJ ONE (14:17)
[2019-02-16] MEDS ORDERED: KETOROLAC TROMETHAMINE 30 MG/ML VIAL ONE (14:17)
[2019-02-16] MEDS ORDERED: ATROPINE SULFATE 1 MG/ML VIAL ONE (14:17)
[2019-02-16] MEDS ORDERED: DEXAMETHASONE SOD PHOS INJ 4 MG/ML VIAL ONE (14:17)
[2019-02-16] MEDS ORDERED: NEOSTIGMINE 5 MG/5ML SYR ONE (14:17)
[2019-02-16] MEDS ORDERED: PROPOFOL IV EMULSION 10 MG/ML 20 ML VIAL ONE (14:17)
--- NOTE | 2019-02-16 15:20 | NUR ---
Visit made by the Spiritual Care Department Pastoral Visitor, Yvtete Adkins. PV provided pastoral presence, prayer, hospitality, and supportive listening. Pastoral Visitor informed pt/family of the scope of [facility] and availability. LILY GRIMM [employer] Spiritual Care Department O: [phone] Pager: [phone] ([phone] calling from)
--- NOTE | 2019-02-16 15:40 | NUR ---
Explained to pt change of status to inpatient. Informed pt of Medicare Rights. She verbalized understanding. Signed copy placed in chart. Copy to pt's transition of care folder.
[2019-02-16] MEDS: LEVOFLOXACIN 500MG/D5W 100ML 100 ML IV SCH (16:51)
[2019-02-16] MEDS: CYANOCOBALAMIN INJ 1,000 MCG/ML VIAL IM SCH (16:52)
[2019-02-16] MEDS ORDERED: DIPHENHYDRAMINE HCL 25 MG CAP PO NR (17:45)
[2019-02-16] MEDS ORDERED: FENTANYL CITRATE/PF 100MCG/2 ML INJ ONE (19:58)
[2019-02-16] MEDS ORDERED: MIDAZOLAM HCL 2 MG/2 ML VIAL ONE (19:58)
--- NOTE | 2019-02-16 21:20 | NUR ---
SPOKE TO DR ARTIS PATIENT REQUESTED ALLERGY MEDICATION. ORDER RECEIVED.
[2019-02-16] MEDS ORDERED: DIPHENHYDRAMINE HCL 25 MG CAP PO PRN (21:30)
[2019-02-16] MEDS ORDERED: DIPHENHYDRAMINE HCL ELIX 12.5 MG/5 ML UDC PO PRN (22:45)
[2019-02-17 00:19] VITALS: BP 124/59
[2019-02-17] MEDS: METRONIDAZOLE 500MG/NS 100ML 100 ML IV SCH (01:16)
[2019-02-17] MEDS: IRON SUCROSE 100 MG in SODIUM CHLORIDE 0.9% 100 ML 100 ML IV SCH (04:19)
[2019-02-17 04:41] VITALS: BP 117/53
[2019-02-17 05:07] LABS: BASOPHILS % 0.1 % (0.0-1.0); EOSINOPHILS # (AUTO) 0.2 (0.0-0.4); EOSINOPHILS % 3.1 % (0.0-6.0); HEMATOCRIT 29.4 % (34.2-44.1); HEMOGLOBIN 9.8 g/dL (12.0-16.0); LYMPHOCYTES # (AUTO) 0.7 (1.0-3.2); LYMPHOCYTES % 10.4 % (18.0-39.1); MEAN CORPUSCULAR HEMOGLOBIN 30.6 pg (28-32); MEAN CORPUSCULAR HGB CONC 33.3 g/dL (31-35); MEAN CORPUSCULAR VOLUME 91.9 fL (81-99); MONOCYTES # (AUTO) 0.6 (0.2-0.8); MONOCYTES % 8.6 % (4.4-11.3); NEUTROPHILS # (AUTO) 5.5 (2.1-6.9); NEUTROPHILS % 76.7 % (38.7-80.0); PLATELET COUNT 210 x10e3/uL (140-360); RED CELL DISTRIBUTION WIDTH 12.7 % (11.7-14.4)
[2019-02-17 05:31] LABS: ALANINE AMINOTRANSFERASE 33 IU/L (0-55); ALBUMIN 2.5 g/dL (3.5-5.0); ALBUMIN/GLOBULIN RATIO 0.9 (0.8-2.0); ALKALINE PHOSPHATASE 49 IU/L (40-150); ANION GAP 13.8 mmol/L (8-16); BLOOD UREA NITROGEN 16 mg/dL (7-26); BUN/CREATININE RATIO 21 (6-25); CALCIUM 8.3 mg/dL (8.4-10.2); CARBON DIOXIDE 20 mmol/L (22-29); CHLORIDE 107 mmol/L (98-107); CREATININE, SERUM 0.76 mg/dL (0.57-1.11); EST GLOMERULAR FILTRATION RATE > 60 ML/MIN (60-); GLUCOSE 206 mg/dL (74-118); POTASSIUM 3.8 mmol/L (3.5-5.1); SODIUM 137 mmol/L (136-145)
--- NOTE | 2019-02-17 07:00 | NUR ---
RCD PT AT BED PT IS ALERT AND ORIENTED PT RESTING ON BED NO SIGNS OF ANY DISTRESS NOTED IV PATENT BED LOW AND LOCKED CALL LIGHT IN REACH
[2019-02-17] MEDS: INSULIN REGULAR, HUMAN 100 UNIT/1 ML 3ML VIAL SQ SCH (07:30)
[2019-02-17] MEDS: SODIUM CHLORIDE 0.9% 1000ML 1,000 ML IV SCH (07:58)
[2019-02-17 08:05] VITALS: BP 118/57
[2019-02-17] MEDS ORDERED: ULTRAM50 MG PO (08:47)
[2019-02-17] MEDS: CYANOCOBALAMIN INJ 1,000 MCG/ML VIAL IM SCH (09:00)
[2019-02-17] MEDS ORDERED: LORATADINE 10 MG TAB PO SCH (09:00)
[2019-02-17 09:01] VITALS: BP 118/57
--- NOTE | 2019-02-17 09:38 | NUR ---
PT WENT HOME IN SAFE CONDITION BY JODI
--- NOTE | 2019-02-18 06:47 | Discharge Summary ---
DISCHARGE DIAGNOSES: 1. Gallstone pancreatitis. 2. Gallstones. 3. Status post laparoscopic cholecystectomy. HISTORY OF PRESENT ILLNESS AND HOSPITAL COURSE: See hospital chart for full details. The patient is a 78-year-old lady, who presented with abdominal pain and was found to have pancreatitis and workup showed gallstones and a HIDA scan showing 26%. The patient was seen by Dr. Edgard Garcia and after n.p.o. status and fluids, patient's abdominal pain resolved and she was seen by Dr. Carlos, who then performed a laparoscopic cholecystectomy without any complications. Postoperatively, the patient did very well with minimal discomfort, was able to be discharged home the following day to follow up with her primary care physician as well as Dr. Carlos in 2 weeks. Please see hospital chart for full details. MD URBANO Lynn/TRES /[id number]
== END 2019-02-17 09:38 | disposition home or self-care (01) | DRG 419 ==
LOC: FSED 10:35 → ERHOLD 13:07 → MED/SURG2 14:32 → OBSVTOIN 02-15 17:48
PROVIDERS: ADMIT Internal Medicine; ATTEND Internal Medicine
PROC: 0FT44ZZ Resection of Gallbladder, Percutaneous Endoscopic Approach (ICD-10-PCS; principal; 2019-02-16 11:00)
DX: K85.10 Biliary acute pancreatitis without necrosis or infection (principal); K81.1 Chronic cholecystitis; E11.9 Type 2 diabetes mellitus without complications; I10 Essential (primary) hypertension; D50.9 Iron deficiency anemia, unspecified; E53.8 Deficiency of other specified B group vitamins
CPT/HCPCS: 36415; 71046; 74176; 74181; 78227; 80053; 80061; 81003; 82553; 82607; 82728; 82746; 82948; 83540; 83690; 84466; 84484; 85025; 85045; 88304; 93005; 96372; 99284; A9537; G0378; J0461; J1100; J1756; J1817; J1885; J1956; J2001; J2250; J2270; J3010; J3420; J7030

== ENCOUNTER 2023-01-07 16:14 | Inpatient (IN) | payer MEDICARE ==
[~2023-01-07] VITALS: Ht 162.6 cm; Wt 83.9 kg
[~2023-01-07 16:14] MED LIST: METFORMIN HCL500 M1 PO; ULTRAM50 MG PO
[2023-01-07] MEDS ORDERED: LACTATED RINGER'S 1,000 ML INJ ONE (16:30)
[2023-01-07 16:55] LABS: BASOPHILS % 0.4 % (0.0-1.0); HEMATOCRIT 42.8 % (34.2-44.1); HEMOGLOBIN 14.6 g/dL (12.0-16.0); MEAN CORPUSCULAR HEMOGLOBIN 31.3 pg (28-32); MEAN CORPUSCULAR HGB CONC 34.1 g/dL (31-35); MEAN CORPUSCULAR VOLUME 91.6 fL (81-99); MONOCYTES # (AUTO) 0.3 (0.2-0.8); MONOCYTES % 3.9 % (4.4-11.3); NEUTROPHILS # (AUTO) 5.7 (2.1-6.9); NEUTROPHILS % 81.4 % (38.7-80.0); PLATELET COUNT 211 x10e3/uL (140-360); RED BLOOD COUNT 4.67 x10e6/uL (3.6-5.1); RED CELL DISTRIBUTION WIDTH 12.6 % (11.7-14.4)
[2023-01-07] MEDS ORDERED: ONDANSETRON HCL INJ 2MG/ML 2ML 2 MG/ML VIAL IV PRN (18:15)
[2023-01-07] MEDS ORDERED: MECLIZINE HCL 12.5 MG TAB PO ONE (18:30)
[2023-01-07 19:56] LABS: CLARITY,URINE SL CLOUDY (CLEAR); COLOR,URINE YELLOW (YELLOW); KETONES,URINE 2+ (NEGATIVE); LEUKOCYTE ESTERASE ,URINE NEGATIVE (NEGATIVE); NITRITE,URINE NEGATIVE (NEGATIVE); PROTEIN,URINE DIPSTICK 2+ (NEGATIVE); URINE UROBILINOGEN 0.2 mg/dL (0.2 - 1)
[2023-01-07 20:01] LABS: BACTERIA,URINE FEW /HPF; EPITHELIAL CELLS,URINE FEW /LPF; WBC,URINE (MAN) 0-5 /HPF (0-5)
[2023-01-07 20:02] LABS: AMORPHOUS SEDIMENT,URINE MODERATE (FEW); MUCUS,URINE FEW (RARE)
[2023-01-07 20:36] VITALS: BP 174/78; PULSE 81; RESP 18; TEMP 98.5; O2SAT 95
[2023-01-07 20:39] LABS: ALBUMIN 3.9 g/dL (3.5-5.0); ALBUMIN/GLOBULIN RATIO 1.3 (0.8-2.0); CALCIUM 9.4 mg/dL (8.4-10.2); CREATININE, SERUM 0.74 mg/dL (0.57-1.11)
[2023-01-07 22:30] VITALS: BP 174/78; PULSE 81; RESP 18; TEMP 98.5; O2SAT 95
[2023-01-07] MEDS ORDERED: DEXTROSE 50% SYRINGE 50 ML IV PRN (22:45)
[2023-01-07] MEDS ORDERED: DIAZEPAM 5 MG TAB PO PRN (22:45)
[2023-01-07] MEDS: INSULIN LISPRO 100 UNIT/1 ML 3ML VIAL SQ SCH (22:45)
[2023-01-07] MEDS ORDERED: PROMETHAZINE 12.5MG/ NACL 0.9% 12.5 MG/50 ML BAG IV ONE (22:45)
[2023-01-07 22:50] VITALS: PULSE 84; RESP 18; O2SAT 97
[2023-01-07] MEDS: ACETAMINOPHEN 325 MG TAB PO PRN (23:16)
[2023-01-08] VITALS (11 sets, daily range): BP systolic 147–174; BP diastolic 56–92; PULSE 65–89; RESP 17–21; TEMP 97.5–98.5; O2SAT 96–100
[2023-01-08] MEDS: INSULIN LISPRO 100 UNIT/1 ML 3ML VIAL SQ SCH ×4 (07:30→21:00)
[2023-01-08] MEDS: ACETAMINOPHEN 325 MG TAB PO PRN ×2 (09:51→22:17)
[2023-01-08] MEDS ORDERED: MECLIZINE HCL 12.5 MG TAB PO SCH (12:00)
[2023-01-08] MEDS ORDERED: DIAZEPAM 5 MG TAB PO SCH (12:00)
[2023-01-08] MEDS: MECLIZINE HCL 12.5 MG TAB PO SCH ×2 (12:23→22:17)
[2023-01-08] MEDS: METFORMIN HCL 500 MG TAB CR PO SCH (12:39)
[2023-01-08] MEDS: DIAZEPAM 5 MG TAB PO SCH (22:18)
[2023-01-09] VITALS (8 sets, daily range): BP systolic 141–165; BP diastolic 57–88; PULSE 67–84; RESP 16–19; TEMP 97.8–98.5; O2SAT 97–99
[2023-01-09] MEDS: MECLIZINE HCL 12.5 MG TAB PO SCH ×3 (08:23→21:12)
[2023-01-09] MEDS: METFORMIN HCL 500 MG TAB CR PO SCH (08:23)
[2023-01-09] MEDS: DIAZEPAM 5 MG TAB PO SCH ×3 (08:24→21:12)
[2023-01-09] MEDS: INSULIN LISPRO 100 UNIT/1 ML 3ML VIAL SQ SCH ×4 (08:30→21:16)
[2023-01-09] MEDS ORDERED: METFORMIN HCL 500 MG TAB CR PO SCH (12:00)
[2023-01-09] MEDS: AZITHROMYCIN 250 MG TAB PO SCH (16:14)
[2023-01-10] VITALS (7 sets, daily range): BP systolic 139–169; BP diastolic 59–77; PULSE 65–102; RESP 16–18; TEMP 97.8–98.5; O2SAT 97–100
[2023-01-10] MEDS: ACETAMINOPHEN 325 MG TAB PO PRN ×2 (04:52→18:40)
[2023-01-10 05:46] LABS: BASOPHILS # (AUTO) 0.1 (0.0-0.1); BASOPHILS % 0.8 % (0.0-1.0); EOSINOPHILS % 0.2 % (0.0-6.0); HEMOGLOBIN 12.5 g/dL (12.0-16.0); LYMPHOCYTES # (AUTO) 2.3 (1.0-3.2); MEAN CORPUSCULAR HEMOGLOBIN 30.9 pg (28-32); MEAN CORPUSCULAR HGB CONC 33.8 g/dL (31-35); MEAN CORPUSCULAR VOLUME 91.4 fL (81-99); MONOCYTES # (AUTO) 0.6 (0.2-0.8); MONOCYTES % 9.2 % (4.4-11.3); NEUTROPHILS % 50.5 % (38.7-80.0); PLATELET COUNT 189 x10e3/uL (140-360); RED BLOOD COUNT 4.05 x10e6/uL (3.6-5.1); RED CELL DISTRIBUTION WIDTH 12.1 % (11.7-14.4)
[2023-01-10 06:18] LABS: ALBUMIN 3.5 g/dL (3.5-5.0); ALBUMIN/GLOBULIN RATIO 1.3 (0.8-2.0); ANION GAP 12.8 mmol/L (8-16); CALCIUM 8.8 mg/dL (8.4-10.2); CREATININE, SERUM 0.83 mg/dL (0.57-1.11); POTASSIUM 3.8 mmol/L (3.5-5.1)
[2023-01-10] MEDS: INSULIN LISPRO 100 UNIT/1 ML 3ML VIAL SQ SCH ×4 (07:30→21:00)
[2023-01-10] MEDS: METFORMIN HCL 500 MG TAB CR PO SCH (08:42)
[2023-01-10] MEDS: MECLIZINE HCL 12.5 MG TAB PO SCH ×3 (08:43→21:27)
[2023-01-10] MEDS: DIAZEPAM 5 MG TAB PO SCH ×3 (08:43→21:27)
[2023-01-10] MEDS: AZITHROMYCIN 250 MG TAB PO SCH (08:43)
[2023-01-11] VITALS (8 sets, daily range): BP systolic 133–170; BP diastolic 61–74; PULSE 64–81; RESP 16–19; TEMP 97.6–98.8; O2SAT 93–97
[2023-01-11] MEDS: INSULIN LISPRO 100 UNIT/1 ML 3ML VIAL SQ SCH ×4 (07:30→21:00)
[2023-01-11] MEDS: MECLIZINE HCL 12.5 MG TAB PO SCH ×3 (08:49→21:04)
[2023-01-11] MEDS: METFORMIN HCL 500 MG TAB CR PO SCH (08:49)
[2023-01-11] MEDS: DIAZEPAM 5 MG TAB PO SCH ×3 (08:49→21:04)
[2023-01-11] MEDS: AZITHROMYCIN 250 MG TAB PO SCH (08:50)
[2023-01-12 00:01] VITALS: BP 128/63; PULSE 79; RESP 16; TEMP 98; O2SAT 98
[2023-01-12 04:28] VITALS: BP 130/69; PULSE 77; RESP 18; TEMP 98.2; O2SAT 96
[2023-01-12] MEDS: INSULIN LISPRO 100 UNIT/1 ML 3ML VIAL SQ SCH ×2 (07:30→11:30)
[2023-01-12] MEDS: METFORMIN HCL 500 MG TAB CR PO SCH (08:13)
[2023-01-12] MEDS: MECLIZINE HCL 12.5 MG TAB PO SCH (08:14)
[2023-01-12] MEDS: DIAZEPAM 5 MG TAB PO SCH (08:14)
[2023-01-12] MEDS: AZITHROMYCIN 250 MG TAB PO SCH (08:14)
[2023-01-12 08:36] VITALS: BP 155/65; PULSE 86; RESP 20; TEMP 98.5; O2SAT 97
[2023-01-12 12:31] VITALS: BP 132/63; PULSE 78; RESP 18; TEMP 98.4; O2SAT 99
== END 2023-01-12 14:03 | disposition home or self-care (01) | DRG 149 ==
LOC: ER 18:56 → ERHOLD 20:50 → MED/SURG2 21:06 → OBSVTOIN 01-08 15:49
PROVIDERS: ADMIT Family Medicine; ATTEND Internal Medicine
DX: H81.12 Benign paroxysmal vertigo, left ear (principal); E11.9 Type 2 diabetes mellitus without complications; Z79.4 Long term (current) use of insulin; E78.5 Hyperlipidemia, unspecified; I10 Essential (primary) hypertension
CPT/HCPCS: 0223U; 36415; 70450; 80053; 81001; 82948; 84484; 85025; 93005; 94799; 96372; 99284; G0378; J2550